=== PATIENT | female | born 1955 | race Caucasian/White ===

== ENCOUNTER → 2023-11-18 08:14 | Outpatient (REF) | payer MEDICARE, OTHER, SELFPAY ==
[2023-11-18 10:47] LABS: % Basophils 0.8 % (0-2); % Eosinophils 2.6 % (0-6); % Immature Granulocytes 0.5 % (0-0.5); % Lymphocytes 22.1 % (20.5-51.1); % Monocytes 7.2 % (1.7-9.3); % Neutrophils 66.8 % (42.2-75.2); Absolute Basophils 0.1 10^3/uL (0-0.2); Absolute Eosinophils 0.2 10^3/uL (0-0.7); Absolute Lymphocytes 1.4 10^3/uL (1.2-3.4); Absolute Monocytes 0.4 10^3/uL (0.1-0.6); Absolute Neutrophils 4.1 10^3/uL (1.4-6.5); Hematocrit 40.2 % (37.0-47.0); Hemoglobin 13.3 g/dL (12.0-16.0); Mean Corp Hgb Conc. 33.1 g/dL (33.0-37.0); Mean Corpuscular Hgb 31.1 pg (27.0-31.0); Mean Corpuscular Volume 94.1 fL (81.0-99.0); Mean Platelet Volume 11.3 fL (7.4-10.4); Nucleated Red Blood Cells % 0 %; Platelet Count 328 10^3/uL (130-400); Red Blood Cell Count 4.27 10^6/uL (4.20-5.40); Red Cell Dist. Width 12.4 % (11.5-14.5); White Blood Cell Count 6.1 10^3/uL (4.8-10.8)
[2023-11-18 10:51] LABS: Urine Albumin Negative (Neg - Trace); Urine Bilirubin Negative (Negative); Urine Character Clear (Clear); Urine Color Yellow; Urine Glucose Negative (Negative); Urine Ketone Negative (Negative); Urine Leukocyte Trace (Negative); Urine Nitrite Negative (Negative); Urine Occult Blood 1+ (Negative); Urine Specific Gravity 1.015 (<1.030); Urine Urobilinogen Negative (Neg - 1+)
[2023-11-18 10:55] LABS: ALT (SGPT) 21 U/L (0-35); AST (SGOT) 20 U/L (14-36); Albumin 4.2 g/dl (3.5-5.0); Alkaline Phosphatase 83 U/L (38-126); Blood Urea Nitrogen 16 mg/dl (7-17); Calcium 9.9 mg/dl (8.4-10.2); Carbon Dioxide 25 mmol/L (22-30); Chloride 107 mmol/L (98-107); Glucose 153 mg/dl (70-99); HDL Cholesterol 69 mg/dl; LDL Cholesterol, Calculated 79 mg/dl; Potassium 4.6 mmol/L (3.5-5.1); Sodium 138 mmol/L (135-145); Total Bilirubin 0.6 mg/dl (0.2-1.3); Total Cholesterol 160 mg/dl (50-199); Total Protein 6.7 g/dl (6.3-8.2); Triglyceride 62 mg/dl (10-149); Very Low Density Lipoprotein 12 mg/dl (0-30); eGFR > 60.00
[2023-11-18 11:07] LABS: Urine Bacteria Few (Negative)
[2023-11-18 11:08] LABS: Urine Red Blood Cell 0-2 /HPF (0-2); Urine White Cell 0-2 /HPF (0-5)
[2023-11-18 11:36] LABS: TSH 2.17 uIU/ml (0.47-4.68)
[2023-11-18 11:43] LABS: Microalbumin, Random Urine <0.6 mg/dl (0.6-1.7)
[2023-11-18 13:55] LABS: Glycohemoglobin (HgbA1c) 6.7 % (4.0-5.6)
== END ==
LOC: HWLAB 08:14
PROVIDERS: ATTENDING PHYSICIAN Family Medicine
DX: E11.69 Type 2 diabetes mellitus with other specified complication (principal); E78.5 Hyperlipidemia, unspecified; I10 Essential (primary) hypertension
CPT/HCPCS: 36415; 80053; 80061; 81003; 81015; 82043; 82570; 83036; 84443; 85025

== ENCOUNTER → 2024-02-03 10:45 | Outpatient (REF) | payer MEDICARE, OTHER, SELFPAY | LOC: HWRAD 10:45 | PROVIDERS: ATTENDING PHYSICIAN Family Medicine | DX: M54.9 Dorsalgia, unspecified (principal) | CPT/HCPCS: 71100; 72072 ==

== ENCOUNTER → 2024-02-10 07:44 | Outpatient (REF) | payer MEDICARE, OTHER, SELFPAY | LOC: HWRAD 07:44 | PROVIDERS: ATTENDING PHYSICIAN Family Medicine | DX: Z78.0 Asymptomatic menopausal state (principal) | CPT/HCPCS: 77080 ==

== ENCOUNTER → 2024-05-24 08:05 | Outpatient (REF) | payer MEDICARE, OTHER, SELFPAY | LOC: HWWDC 08:05 | PROVIDERS: ATTENDING PHYSICIAN Obstetrics & Gynecology; FAMILY PHYSICIAN Family Medicine | DX: Z12.31 Encounter for screening mammogram for malignant neoplasm of breast (principal) | CPT/HCPCS: 77063; 77067 ==

== ENCOUNTER 2024-07-23 17:10 | Emergency (ER) | payer MEDICARE, OTHER, SELFPAY ==
[2024-07-23 17:16] VITALS: BP 187/99
--- NOTE | 2024-07-23 17:20 | ED.GENMED ---
ED Provider Triage
<Derrek Mak PA-C - Last Filed: 07/23/24 17:21>
-
Patient seen by provider in Triage?: Seen in Triage
Attestation: A medical screening examination has been initiated by a qualified medical provider. Based on the assessment performed at this time, it has been determined that an emergent medical condition may exist and the patient has been informed
that further medical evaluation and possible additional diagnostic testing may be needed.
HPI: 69-year-old female presenting for an accidental trip and fall resulting in right sided head injury, right little finger injury and right knee injury. No LOC, no anticoagulants. CT of the head, x-rays of the hand and knee ordered.
GENERAL: Alert , in no apparent distress
EYE: No visual abnormalities.
NECK: Trachea midline
ENT: No visible abnormalities.
LUNGS: No acute respiratory distress
NEUROLOGICAL: Alert and oriented
SKIN: Skin intact. No visible changes.
MUSCULOSKELETAL: Moving extremities normally
PSYCH: Normal and appropriate interaction.
This is a medical evaluation conducted in person to initiate diagnostic evaluation and provide initial therapeutics. Please see further documentation by the treating clinician.
History of Present Illness
<Derrek Mak PA-C - Last Filed: 07/23/24 17:21>
General
Chief Complaint: Head Injury
Time Seen by Provider: 07/23/24 21:51
<April Granda PA-C - Last Filed: 07/24/24 00:38>
General
Source: patient
Exam Limitations: none
Nursing documentation reviewed up to this point in time: agreed with
History of Present Illness
History of Present Illness:
69 y/o F with h/o HTN, hld
here with multiple ocmplains after fall
pt has facial pain/head injury after mechanical fall
pt says she was walkin gin the driveway and fell hitting her faceon the ground
sh ehas pain and lmited ROM of her R 5th finger and pain in her righ tknee with superficial abrasion
no neck pain, back pain, cp, headache, vomiting, confusion, dizziness, weakness, etc
nothing taken for pain
vision normal but having inc swelling difficult to open R eye
Past History
<April Granda PA-C - Last Filed: 07/24/24 00:38>
Past History
ED Past Medical History: HTN, Hypercholesterolemia and Other (glaucoma)
Social History
Tobacco: Non-smoker
Alcohol: None
Review of Systems
<April Granda PA-C - Last Filed: 07/24/24 00:38>
Review of Systems
Allergies reviewed?: Yes
All Other Systems: Not applicable
Phy Exam
<SIRIA Cassidy Last Filed: 07/24/24 00:38>
Physical Exam
Physical Exam:
GENERAL: Alert , in no apparent distress
HEAD: NCAT
FACE: right superior orbital swelling and ecchmosos mild tendenress to palpation
minmal inferior orbital swelling/bruising;
eyelid swelling R upper eyelid but can open eye and has normal EOMs
NECK: no midline tenderness, active ROM intact, no paraspinal muscle tenderness;
EYE: pupils equal and reactive, EOMs intact., no hyphema
normal visual posada
wearing glasses vision intact
ENT: o/p clr, mmm. no hemotympanum
CARDIAC: Regular rate and rhythm, no edema
LUNGS: Clear breath sounds bilaterally, no acute respiratory distress, no wheezes/rales/rhonchi
ABDOMEN: Soft, without focal tenderness, no r/g, no cvat
NEUROLOGICAL: Alert and oriented, no focal neuro deficits, CN intact, 5/5 strength, sensation intact
SKIN: Warm and dry, abrasion/right forehead superifical, superifical knee abrasion right side; ecchymossi R orbital region
MUSCULOSKELETAL: R 5th finger PIP dislocation with swelling, bruising
limited painful ROM
no open wounds
right knee abrasions
full painless ROM
PSYCH: Normal and appropriate interaction.
Course
<Derrek Mak PA-C - Last Filed: 07/23/24 17:21>
Orders/Labs/Results
Orders:
Orders
07/23/24 17:20
CT Head W/o Iv Contrast Urgent
Comment:
Reason For Exam: fall, right sided head injury
CR Hand - Right Min 3 Views Urgent
Comment:
Reason For Exam: fall, little finger injury
CR Knee- Right 4 Or More View* Urgent
Comment:
Reason For Exam: fall, pain
07/23/24 22:47
Tetanus/Diphth/Acelpertussis [Adacel] 0.5 ml IM .ONCE ONE
Vital Signs
Initial and Last Documented VS:
Initial Vital Signs
Temp Pulse Resp BP Pulse Ox
37.0 C 81 16 187/99 98
07/23/24 17:16 07/23/24 17:16 07/23/24 17:16 07/23/24 17:16 07/23/24 17:16
Last Documented Vital Signs
Temp Pulse Resp BP Pulse Ox
37.0 C 82 20 178/84 96
07/23/24 17:16 07/23/24 21:28 07/23/24 21:28 07/23/24 21:28 07/23/24 21:28
<April Granda PA-C - Last Filed: 07/24/24 00:38>
Orders/Labs/Results
Orders:
Orders
07/23/24 17:20
CT Head W/o Iv Contrast Urgent
Comment:
Reason For Exam: fall, right sided head injury
CR Hand - Right Min 3 Views Urgent
Comment:
Reason For Exam: fall, little finger injury
CR Knee- Right 4 Or More View* Urgent
Comment:
Reason For Exam: fall, pain
07/23/24 22:47
Tetanus/Diphth/Acelpertussis [Adacel] 0.5 ml IM .ONCE ONE
Vital Signs
Initial and Last Documented VS:
Initial Vital Signs
Temp Pulse Resp BP Pulse Ox
37.0 C 81 16 187/99 98
07/23/24 17:16 07/23/24 17:16 07/23/24 17:16 07/23/24 17:16 07/23/24 17:16
Last Documented Vital Signs
Temp Pulse Resp BP Pulse Ox
37.0 C 82 20 178/84 96
07/23/24 17:16 07/23/24 21:28 07/23/24 21:28 07/23/24 21:28 07/23/24 21:28
<April Granda PA-C - Last Filed: 07/24/24 00:38>
MDM/Problems Addressed
Differential Diagnosis Includes:
fracture, head injury, orbital frature, finger dislocatino, head injury
MDM/Problems Addressed:
69 y/o F htn ,hld
here with mechanical fall tonight on pavement striking face on ground
no LOC
no dizziness
no thiners
no vomiting
no confusion
no neck pain
having R orbital swelling and bruising with normal vision and intact EOMS
able to open eye moderately
R 5th finger PIP joint dislocation, reduced successfully by me
finger splint applied
R knee abrasions cleaned by RN and dressed
xrays indep reviewed
pt has small avulsion fx of prox phalanx
and an osseous body in R knee which is likely atraumatic
d/c home for orthopf/u
<April Granda PA-C - Last Filed: 07/24/24 00:38>
*Critical Care Note
Total Time (30-74mins, 75-104mins- exclusive of procedures): Not Applicable
ED Attending Note
<Derrek Mak PA-C - Last Filed: 07/23/24 17:21>
-
Portions of this chart may have been created with voice recognition software.� Occasional wrong word or��sound alike� substitutions may have occurred due to the inherent limitations of voice recognition software.
Discharge Plan
Departure
Patient Disposition: Home (Routine Discharge)
Date of Disposition: 07/23/24
Time of Disposition: 22:53
Patient with high blood pressure during this ER visit?: Yes
Covid-19: Not Applicable
Discharge Problem:
Contusion of right orbit, Minor closed head injury, Dislocation closed, finger, Avulsion fracture of proximal phalanx of finger, Abrasion of knee
Instructions: Finger Dislocation (DC), Eye Contusion (DC), BLOOD PRESSURE
Referrals:
Paolo Blanco DO [Family Provider] - Follow up in 2-3 days
Activity Restrictions/Additional Instructions:
Your finger dislocation was reduced, use the finger splint to keep it immobilized for a few days. You can follow-up with a hand doctor at [facility]. You did have 2 small avulsion fractures of the proximal phalanx of the bone. Take
Tylenol or Motrin for pain. For your right eye try to sleep with the extra pillow tonight to help with the swelling. Ice off-and-on frequently. If you wake up and have significant swelling try icing it and sitting upright but if you are having
any difficulty moving your eye around and it socket or have eye pain or vision changes you need to be seen. Follow-up with your family doctor.
Keep your abrasions clean and dry in your knee. Return for any concerns
Interventions
Interventions:
*Risk Screen - Suicide Last Done: 07/23/24 17:16
*General Assessment Last Done: 07/23/24 20:47
*Neglect/Abuse Screening Last Done: 07/23/24 17:16
ED- Fall Risk Assessment Last Done: 07/23/24 20:47
*ED COVID-19 Vaccine History Last Done: 07/23/24 20:47
*Nursing Disposition Last Done: 07/23/24 23:00
ED- Neurological Assessment Last Done: 07/23/24 20:47
ED-Skin Assessment Last Done: 07/23/24 20:47
Discharge Date and Time
Discharge Date/Time: 07/23/24 23:01
Print Language: FIJIAN
[2024-07-23 20:54] VITALS: BP 199/88
--- NOTE | 2024-07-23 21:03 | EDRN ---
R forehead/R knee abrasions cleansed w/ soap and water, rinsed and dried. R forehead had double antibiotic ointment applied to abrasions and R knee had double antibiotic ointment telfa and kerlix over it.
[2024-07-23 21:28] VITALS: BP 178/84
[2024-07-23] MEDS: ADACEL 0.5 ML IM (22:55)
== END 2024-07-23 23:01 | disposition home or self-care (01) ==
LOC: EMR 17:10
PROVIDERS: EMERGENCY PHYSICIAN Student in an Organized Health Care Education/Training Program; FAMILY PHYSICIAN Family Medicine
DX: S09.90XA Unspecified injury of head, initial encounter (principal); S62.616A Displaced fracture of proximal phalanx of right little finger, initial encounter for closed fracture; S05.11XA Contusion of eyeball and orbital tissues, right eye, initial encounter; S60.051A Contusion of right little finger without damage to nail, initial encounter; S80.211A Abrasion, right knee, initial encounter; S00.81XA Abrasion of other part of head, initial encounter; W01.0XXA Fall on same level from slipping, tripping and stumbling without subsequent striking against object, initial encounter; Y93.01 Activity, walking, marching and hiking; Z23 Encounter for immunization; I10 Essential (primary) hypertension; E78.00 Pure hypercholesterolemia, unspecified; H40.9 Unspecified glaucoma
CPT/HCPCS: 99285; 26725; 90471; 70450; 73130; 73564; 90715

== ENCOUNTER → 2024-08-06 07:53 | Outpatient (REF) | payer MEDICARE, OTHER, SELFPAY | LOC: RCS 07:53 | PROVIDERS: ATTENDING PHYSICIAN Family Medicine | DX: R01.1 Cardiac murmur, unspecified (principal) | CPT/HCPCS: 93306 ==

== ENCOUNTER → 2024-11-21 09:52 | Outpatient (REF) | payer MEDICARE, OTHER, SELFPAY | LOC: RAD 09:52 | PROVIDERS: ATTENDING PHYSICIAN Family Medicine | DX: K21.9 Gastro-esophageal reflux disease without esophagitis (principal) | CPT/HCPCS: 74246 ==

== ENCOUNTER → 2024-12-20 08:31 | Outpatient (REF) | payer MEDICARE, OTHER, SELFPAY ==
[2024-12-20 11:43] LABS: % Basophils 0.6 % (0-2); % Eosinophils 2.6 % (0-6); % Immature Granulocytes 0.2 % (0-0.5); % Lymphocytes 17.9 % (20.5-51.1); % Monocytes 7.6 % (1.7-9.3); % Neutrophils 71.1 % (42.2-75.2); Absolute Eosinophils 0.2 10^3/uL (0-0.7); Absolute Lymphocytes 1.2 10^3/uL (1.2-3.4); Absolute Monocytes 0.5 10^3/uL (0.1-0.6); Absolute Neutrophils 4.6 10^3/uL (1.4-6.5); Hematocrit 39.9 % (37.0-47.0); Hemoglobin 13.2 g/dL (12.0-16.0); Mean Corp Hgb Conc. 33.1 g/dL (33.0-37.0); Mean Corpuscular Hgb 31.8 pg (27.0-31.0); Mean Corpuscular Volume 96.1 fL (81.0-99.0); Mean Platelet Volume 10.8 fL (7.4-10.4); Nucleated Red Blood Cells % 0 %; Platelet Count 301 10^3/uL (130-400); Red Blood Cell Count 4.15 10^6/uL (4.20-5.40); Red Cell Dist. Width 12.6 % (11.5-14.5); White Blood Cell Count 6.5 10^3/uL (4.8-10.8)
[2024-12-20 11:50] LABS: ALT (SGPT) 27 U/L (0-35); AST (SGOT) 19 U/L (14-36); Albumin 4.1 g/dl (3.5-5.0); Alkaline Phosphatase 61 U/L (38-126); Blood Urea Nitrogen 18 mg/dl (7-17); Carbon Dioxide 29 mmol/L (22-30); Chloride 108 mmol/L (98-107); Glucose 152 mg/dl (70-99); HDL Cholesterol 64 mg/dl; LDL Cholesterol, Calculated 92 mg/dl; Potassium 4.8 mmol/L (3.5-5.1); Sodium 143 mmol/L (135-145); Total Bilirubin 0.5 mg/dl (0.2-1.3); Total Cholesterol 168 mg/dl (50-199); Total Protein 6.7 g/dl (6.3-8.2); Triglyceride 60 mg/dl (10-149); Very Low Density Lipoprotein 12 mg/dl (0-30); eGFR > 60.00
[2024-12-20 12:17] LABS: TSH 2.27 uIU/ml (0.47-4.68)
[2024-12-20 12:23] LABS: Microalbumin, Random Urine <0.6 mg/dl (0.6-1.7)
[2024-12-20 12:25] LABS: Glycohemoglobin (HgbA1c) 7.3 % (4.0-5.6)
== END ==
LOC: HWLAB 08:31
PROVIDERS: ATTENDING PHYSICIAN Family Medicine
DX: E11.69 Type 2 diabetes mellitus with other specified complication (principal); R01.1 Cardiac murmur, unspecified; I10 Essential (primary) hypertension; E66.01 Morbid (severe) obesity due to excess calories; Z68.35 Body mass index [BMI] 35.0-35.9, adult; E66.812 Obesity, class 2; Z76.89 Persons encountering health services in other specified circumstances; Z91.81 History of falling; S00.83XA Contusion of other part of head, initial encounter; S63.259A Unspecified dislocation of unspecified finger, initial encounter
CPT/HCPCS: 36415; 80053; 80061; 82043; 82570; 83036; 84443; 85025

== ENCOUNTER 2025-01-27 06:21 | Day surgery (SDC) | payer MEDICARE, OTHER, SELFPAY | END 2025-01-27 11:26 | disposition home or self-care (01) | LOC: GI 06:21 | PROVIDERS: ATTENDING PHYSICIAN Internal Medicine Gastroenterology | DX: K44.9 Diaphragmatic hernia without obstruction or gangrene (principal); R93.3 Abnormal findings on diagnostic imaging of other parts of digestive tract; K29.50 Unspecified chronic gastritis without bleeding; K31.A11 Gastric intestinal metaplasia without dysplasia, involving the antrum; B96.81 Helicobacter pylori [H. pylori] as the cause of diseases classified elsewhere | CPT/HCPCS: 43239; 88305; 88342 ==

== ENCOUNTER → 2025-03-14 10:14 | Outpatient (REF) | payer MEDICARE, OTHER, SELFPAY ==
[2025-03-16 23:40] LABS: H. pylori Antigen, Fecal Negative (Negative)
== END ==
LOC: HWLAB 10:14
PROVIDERS: ATTENDING PHYSICIAN Internal Medicine Gastroenterology; FAMILY PHYSICIAN Family Medicine
DX: A04.8 Other specified bacterial intestinal infections (principal)
CPT/HCPCS: 87338

== ENCOUNTER → 2025-06-26 18:11 | Outpatient (REF) | payer MEDICARE, OTHER, SELFPAY | LOC: WDC 18:11 | PROVIDERS: ATTENDING PHYSICIAN Obstetrics & Gynecology; FAMILY PHYSICIAN Family Medicine | DX: Z12.31 Encounter for screening mammogram for malignant neoplasm of breast (principal) | CPT/HCPCS: 77063; 77067 ==